=== PATIENT | female | born 1980 | race Caucasian/White ===

== ENCOUNTER 2016-11-23 11:48 | Emergency (ER) | payer OTHER ==
[~2016-11-23] VITALS: Ht 167.6 cm; Wt 95.3 kg
[~2016-11-23 11:48] MED LIST: DERMOPLAST SPRA56 ML; IBUPROFEN 600600 M1; LANOLIN56 GM; LORTAB 5 MG/5001 TA1; PRENATAL OR; PRENATAL PO; SENNA PO; TUCKS MEDICATE1 EAC1
[2016-11-23 12:12] LABS: HEMATOCRIT 46.4 % (37.0-47.0); HEMOGLOBIN 16.4 gm/dL (12.0-15.0); MCHC 35.5 g/dL (28.0-37.0); MCV 90.2 fL (80.0-100.0); PLATELET COUNT 419 thou/uL (150-400); RBC 5.14 mil/uL (4.20-5.00); WBC 21.4 thou/uL (4.0-11.0)
[2016-11-23 12:13] LABS: MANUAL DIFF YES
[2016-11-23 12:21] LABS: CALCIUM 8.7 mg/dL (8.5-10.1); POTASSIUM 4.4 mmol/L (3.5-5.1)
[2016-11-23 12:26] LABS: ALBUMIN 4.1 g/dL (3.4-5.0); TOTAL BILIRUBIN 0.6 mg/dL (<0.1-1.0); TOTAL PROTEIN 8.1 g/dL (6.4-8.2)
[2016-11-23 12:33] LABS: ABSOLUTE NEUTROPHILS 18.6 thou/uL (1.4-8.2); PLATELET ESTIMATE INCREASED; TOTAL CELL COUNT 100
[2016-11-23 13:10] LABS: URINE BILIRUBIN NEGATIVE (Negative); URINE BLOOD 2+ (Negative); URINE COLOR YELLOW; URINE GLUCOSE-RANDOM* NEGATIVE (Negative); URINE KETONES 1+ (Negative); URINE LEUKOCYTES-REFLEX 1+ (Negative); URINE PROTEIN (DIPSTICK) NEGATIVE (Negative); URINE SPECIFIC GRAVITY <= 1.005 (1.003-1.035); URINE UROBILINOGEN 0.2 E.U./dl (0.2-1.0)
[2016-11-23 13:19] LABS: SQUAMOUS 0-3 Few /LPF (0-3)
[2016-11-23 13:20] LABS: CASTS None Seen /LPF (None Seen); CRYSTALS None Seen /LPF (None Seen); URINE RBC 0-2 Rare /HPF (0-2); URINE WBC-REFLEX 6-15 Few /HPF (0-5)
[2016-11-23] MEDS ORDERED: FLAGYL500 MG PO (13:33)
[2016-11-23] MEDS ORDERED: ONDANSETRON HCL4 M2 PO (13:33)
[2016-11-23] MEDS ORDERED: CIPRO500 MG PO (13:33)
[2016-11-23 14:13] VITALS: BP 127/85
== END 2016-11-23 14:18 | disposition home or self-care (01) ==
LOC: ER 11:48
PROVIDERS: Physician Assistant
DX: K52.89 Other specified noninfective gastroenteritis and colitis (principal); D72.828 Other elevated white blood cell count; N39.0 Urinary tract infection, site not specified; F17.210 Nicotine dependence, cigarettes, uncomplicated; F10.99 Alcohol use, unspecified with unspecified alcohol-induced disorder